=== PATIENT | male | born 1995 | race Asian ===

== ENCOUNTER 2018-12-20 11:35 | Emergency (ER) | payer MEDICAID ==
[~2018-12-20] VITALS: Ht 175.3 cm; Wt 75.7 kg
[2018-12-20 11:35] VITALS: BP_SYST 129
--- NOTE | 2018-12-20 11:35 | NUR ---
BROUGHT BACK TO BED #7 VIA WHEELCHAIR, PLACED IN BED AND TRIAGED. REPORT GIVEN TO OBINNA
--- NOTE | 2018-12-20 11:50 | NUR ---
Pt [id number] presents to ED c/o 04/19 R knee r/t playing basketball and hearing a pop. Pt reports he had a patelallar tendon tear on the same knee with similar symptoms. Denies tingling/numbness to RLE. Skin pink dry and warm, breathing even and unlabored. No other injuries/complaints per pt/noted. Will continue to monitor.
--- NOTE | 2018-12-20 12:15 | NUR ---
ER Dr. Barkley at bedside examining patient.
--- NOTE | 2018-12-20 13:30 | NUR ---
Patient to MRI with radiolology staff via wheel chair.
--- NOTE | 2018-12-20 14:30 | NUR ---
Pt returned from radiology in stable condition
--- NOTE | 2018-12-20 15:27 | NUR ---
Pt laying comfortably in bed with no signs of distress. Awaiting MRI results.
--- NOTE | 2018-12-20 15:32 | NUR ---
Knee immobilizer applied and crutches given.
--- NOTE | 2018-12-20 15:48 | NUR ---
Patient given written and verbal discharge instructions and verbalizes understanding. ER MD Barkley discussed with patient the results and treatment provided. Patient in stable condition. ID arm band removed. Rx of Tramadol given. Patient educated on pain management and to follow up with PMD. Pain Scale 3. Opportunity for questions provided and answered. Medication side effect fact sheet provided.
[2018-12-20 16:03] VITALS: BP_SYST 124
== END 2018-12-20 15:48 | disposition home or self-care (01) ==
LOC: SED 11:35
DX: S83.91XA Sprain of unspecified site of right knee, initial encounter (principal); R03.0 Elevated blood-pressure reading, without diagnosis of hypertension; X50.9XXA Other and unspecified overexertion or strenuous movements or postures, initial encounter; Y93.89 Activity, other specified; Y92.89 Other specified places as the place of occurrence of the external cause; Y99.8 Other external cause status
CPT/HCPCS: 73721; 99284